=== PATIENT | female | born 1980 | race Caucasian/White ===

== ENCOUNTER 2025-08-26 11:53 | Emergency (ER) | payer OTHER ==
[~2025-08-26] VITALS: Ht 160 cm; Wt 72.7 kg
[2025-08-26 12:24] LABS: APPEARANCE,URINE CLEAR (CLEAR); GLUCOSE, URINE (UA) NEGATIVE (NEGATIVE); LEUKOCYTE ESTERASE ,URINE SMALL (NEGATIVE); NITRATE,URINE NEGATIVE (NEGATIVE); OCCULT BLOOD,URINE NEGATIVE (NEGATIVE); SPECIFIC GRAVITIY, URINE 1.026 (1.003-1.030)
[2025-08-26 12:26] LABS: PLATELET COUNT (AUTO) 232 K/uL (150-450); RED BLOOD CELL COUNT(AUTO) 4.17 MIL/uL (4.00-5.20); RED CELL DISTRIBUTION WIDTH 12.4 % (11.5-14.5); WHITE BLOOD COUNT (AUTO) 5.8 K/uL (4.5-11.0)
[2025-08-26 12:28] LABS: SQUAMOUS EPITHELIAL CELL,UR Few /LPF (None Seen)
[2025-08-26 12:34] LABS: CALCIUM, TOTAL 8.6 mg/dL (8.8-10.5); CREATININE 0.46 mg/dL (0.60-1.30); GLOMERULAR FILTR. RATE CALC > 60 mL/min (>60); GLUCOSE,RANDOM 127 mg/dL (70-110); SODIUM SERUM 139 mmol/L (136-145); UREA NITROGEN, BLOOD 12 mg/dL (7-18)
[2025-08-26 12:46] LABS: ASPARTATE AMINOTRANSFERASE 19.0 U/L (15-37); HCG,QUANTITATIVE 1.0 mIU/mL (0-6); TOTAL PROTEIN, SERUM 7.9 g/dL (6.4-8.2)
[2025-08-26] MEDS ORDERED: IOHEXOL 300 MG/ML 100 ML VIAL ONE (15:33)
[2025-08-26] MEDS ORDERED: 0.9% SODIUM CHLORIDE 10 ML SYRINGE IVP ONE (15:33)
[2025-08-26] MEDS ORDERED: SODIUM CHLORIDE 0.9% 100 ML ONE (15:33)
[2025-08-26] MEDS ORDERED: KETOROLAC TROMETHAMINE 30 MG/ML VIAL IM ONE (15:45)
[2025-08-26] MEDS: KETOROLAC TROMETHAMINE 30 MG/ML VIAL IVP ONE (16:32)
[2025-08-26] MEDS: CefTRIAXone 1 GM/DEXTROSE 50 ML IV ONE (19:15)
[2025-08-26 19:18] VITALS: TEMP 98.3
[2025-08-26] MEDS ORDERED: DOXY-354 PO (19:19)
[2025-08-26] MEDS ORDERED: TRAM50TA5 PO (19:19)
[2025-08-26 19:40] VITALS: BP 119/74; PULSE 84; RESP 16; O2SAT 99
== END 2025-08-26 21:34 | disposition home or self-care (01) ==
LOC: EMS 11:53
DX: R10.21 Pelvic and perineal pain right side (principal); N70.11 Chronic salpingitis; G89.29 Other chronic pain; Z85.41 Personal history of malignant neoplasm of cervix uteri; Z85.42 Personal history of malignant neoplasm of other parts of uterus; Z88.0 Allergy status to penicillin; Z90.721 Acquired absence of ovaries, unilateral; Z98.890 Other specified postprocedural states
CPT/HCPCS: 99285; 74177; 96365; 76830; 76856; 96375; 80048; 80076; 81001; 83690; 84702; 85025; 36415; J1885; J7050; Q9967